=== PATIENT | female | born 1955 | race Caucasian/White ===

== ENCOUNTER → 2017-03-19 | Outpatient (CLI) | payer OTHER | LOC: FIMAGING 15:04 | PROVIDERS: ATTEND Internal Medicine | DX: Z12.31 Encounter for screening mammogram for malignant neoplasm of breast (principal) | CPT/HCPCS: G0202 ==

== ENCOUNTER → 2017-05-11 | Outpatient (CLI) | payer OTHER | LOC: FIMAGING 16:03 | PROVIDERS: ATTEND Internal Medicine | DX: R06.02 Shortness of breath (principal); G43.109 Migraine with aura, not intractable, without status migrainosus ==

== ENCOUNTER → 2017-05-27 | Outpatient (CLI) | payer OTHER ==
--- NOTE | 2017-05-28 01:08 | CPR ---
[f rep st] NONINVASIVE CARDIAC PROCEDURE REPORT DATE OF PROCEDURE: 05/26/2017 PROCEDURE: Exercise nuclear stress test. INDICATION: The patient is a 61-year-old female who presents complaining of exertional chest discomf ort which has been present all her life. She also has noted some chest pressure while under stressfu l situations. She denies any history of diabetes, hypertension, hyperlipidemia, or prior tobacco use . She does have a family history of coronary artery disease with her mother being diagnosed with cor onary artery disease at the age of 65. DESCRIPTION OF PROCEDURE: Consent was obtained. The patient was placed on continuous telemetry. He r resting EKG reveals normal sinus rhythm with diffuse T-wave flattening. Her heart rate 76, UT inte rval 128, QRS duration of 96, and a QTc of 443. The patient exercised on the treadmill for 6 minutes and 50 seconds. She started to develop ST changes with initial exertion. At peak exercise, she had to [address] depression in leads V4 through V6; aVR showed [address]-elevation. She also complain ed of 4/10 chest discomfort at peak exercise. Her ST changes improved but were still present 10 shanna shan into recovery. Late in recovery she also had ST depression in the inferior leads. Her blood pre ssure at rest was 118/82 and peaked at 172/76. Her blood pressure returned to baseline within 5 shanna shan of recovery. PLAN: Positive exercise treadmill test for ischemia. The patient also was symptomatic, complaining of 4/10 chest discomfort with exercise. I would have a low threshold to proceed with an angiogram. Also, of note, the patient had ST elevation in aVR which can be an indication of multivessel coronary artery disease. /[id number]/MODL
== END ==
LOC: FIMAGING 13:24
PROVIDERS: ATTEND Internal Medicine
DX: R07.89 Other chest pain (principal); R06.02 Shortness of breath; R94.31 Abnormal electrocardiogram [ECG] [EKG]
CPT/HCPCS: 78452; A9500

== ENCOUNTER 2017-06-16 06:05 | Day surgery (SDC) | payer OTHER ==
[2017-06-16] MEDS ORDERED: FAMOTIDINE 20 MG TAB PO ONE (06:11)
[2017-06-16] MEDS ORDERED: NS 1,000 ML IV ONE (06:11)
[2017-06-16] MEDS ORDERED: diphenhydrAMINE 25 MG CAP PO ONE ×2 (06:11→06:38)
[2017-06-16] MEDS ORDERED: ASPIRIN EC 325 MG TAB PO ONE (06:11)
[2017-06-16] MEDS ORDERED: DIAZEPAM 5 MG TAB PO ONE (06:11)
--- NOTE | 2017-06-16 06:30 | CPEKG ---
Heart Rate: 68 RR Interval: 882 P-R Interval: 132 QRSD Interval: 88 QT Interval: 412 QTC Interval: 439 P [place]: 48 QRS [place]: 30 T Wave [place]: 25 EKG Severity - NORMAL ECG - EKG Impression: SINUS RHYTHM Electronically Signed By: Anita Appiah 16-Jun-2017 18:44:15
[2017-06-16] MEDS ORDERED: DIAZEPAM 5 MG TAB ONE (06:38)
[2017-06-16] MEDS ORDERED: FAMOTIDINE 20 MG TAB ONE (06:38)
[2017-06-16] MEDS ORDERED: ASPIRIN EC 81 MG TAB PO ONE (06:39)
[2017-06-16 06:43] LABS: % IMMATURE GRANULYOCYTES 0.2 % (0.0-1.1); ABSOLUTE IMMATURE GRANULOCYTES 0.01 10^3/uL (0.00-0.10); ADD DIFF? NO; ADD MORPH? NO; ADD SCAN? NO; ATYPICAL LYMPHOCYTE FLAG 10 (0-99); FRAGMENT RBC FLAG 0 (0-99); HEMATOCRIT 42.4 % (38.0-47.0); HEMOGLOBIN 14.4 g/dL (12.6-16.3); LEFT SHIFT FLG 0 (0-99); LIPEMIA HEMOLYSIS FLAG 90 (0-99); MEAN CELL HEMOGLOBIN 30.2 pg (27.9-34.1); MEAN CELL VOLUME 88.9 fL (81.5-99.8); MEAN PLATELET VOLUME 8.9 fL (8.7-11.7); PLATELET CLUMPS FLAG 0 (0-99); PLATELET COUNT 223 10^3/uL (150-400); RED BLOOD CELL COUNT 4.77 10^6/uL (4.18-5.33); RED CELL DISTRIBUTION WIDTH 12.8 % (11.5-15.2)
[2017-06-16 06:54] LABS: INR 1.05 (0.83-1.16); PROTIME(PATIENT) 13.9 SEC (12.0-15.0)
[2017-06-16] MEDS ORDERED: LIDOCAINE 1% 300 MG/30 ML SDV ONE (07:19)
[2017-06-16] MEDS ORDERED: fentaNYL 100 MCG/2 ML INJ ONE ×2 (07:19→09:03)
[2017-06-16] MEDS ORDERED: MIDAZOLAM 2 MG/2 ML VIAL ONE ×2 (07:20)
[2017-06-16] MEDS ORDERED: IOPAMIDOL (ISOVUE-370) 150 ML BTL IV ONE (07:20)
[2017-06-16 07:44] LABS: ANION GAP 12 mEq/L (8-16); CALCIUM 9.4 mg/dL (8.5-10.4); CARBON DIOXIDE 22 mEq/l (22-31); CHLORIDE 111 mEq/L (97-110); CHOLESTEROL 209 mg/dL (140-220); CHOLESTEROL/HDL RATIO 3.94 RATIO (1.00-4.44); CREATININE 0.8 mg/dL (0.6-1.0); GLOMERULAR FILTRATION RATE > 60; GLUCOSE 91 mg/dL (70-100); HIGH DENSITY LIPOPROTEIN 53 mg/dL (40-85); LDL/HDL RATIO 2.43 RATIO (1.00-3.22); LOW DENSITY LIPOPROTEIN 129 mg/dL (80-100); NON-HIGH DENSITY LIPOPROTEIN 156 mg/dL (90-129); POTASSIUM 4.1 mEq/L (3.5-5.2); SODIUM 145 mEq/L (134-144); TRIGLYCERIDE 136 mg/dL (35-135); VERY LOW DENSITY LIPOPROTEINS 27 mg/dL (8-25)
--- NOTE | 2017-06-16 07:56 | PDHPUP ---
History & Physical Update H&P update statement: This history and physical update is based on an assessment of the patient which was completed after admission or registration (within 24 hours), but prior to the surgery/procedure. H&P update: H&P reviewed & patient examined, no change in patient's condition since H&P completed
--- NOTE | 2017-06-16 07:56 | PDPROPOC ---
Sedation Plan of Care Sedation Plan of Care: vital signs stable ASA Classification: ASA 1 Planned drugs: fentanyl, midazolam Mallampati Score: Class 2 Mallampati Reference Image: Patient passed 3-3-2 rule?: Yes
--- NOTE | 2017-06-16 08:28 | GHP ---
[f rep st] HISTORY AND PHYSICAL DATE OF ADMISSION: 06/16/2017 PRIMARY CARE DOCTOR: Myron Plasencia MD. CHIEF COMPLAINT: Chest pain. HISTORY OF PRESENT ILLNESS: The patient is a 61-year-old female with no known cardiovascular disease . She does have a family history of coronary disease, with her mother having bypass surgery in her 6 0s. For several years, she has had exertional chest tightness and also notes chest tightness with st ress. She does not particularly have shortness of breath. She has occasional palpitations. No sync ope. No symptoms of heart failure. Because of her symptoms of exertional chest pain, she underwent an exercise nuclear stress test at the hospital on May 27. This was notable for exertional ches t discomfort, reasonable exercise tolerance of 6 minutes and 50 seconds, and [address] depression in leads V4 through V6 as well as [address] elevation in lead AVR. Her nuclear images were negative f or ischemia. Ejection fraction normal. She had a similar clinical scenario in 2003 with an abnormal stress test and went on to have a coronary angiogram at that time. Per that report, there is no sig nificant coronary artery disease. REVIEW OF SYSTEMS: A full 10-point review of systems performed, notable for that which is outlined a sailaja. She also has had a chronic cough for about 4 years that is being evaluated by Dr. Plasencia and h as previously been evaluated by Pulmonology. She recently started Prilosec to see if this would help the cough. She is not sure it has helped that much, perhaps a little bit. Otherwise, a full 10-poi nt review of systems was performed and is negative. ALLERGIES: Latex causes a rash. Codeine causes nausea. PAST MEDICAL HISTORY: 1. Asthma and chronic cough. 2. Dyslipidemia. 3. History of hepatic cyst. PAST SURGICAL HISTORY: x2, and total hip replacement. SOCIAL HISTORY: The patient is and her is at the bedside. She is an grill attendant. She does not smoke cigarettes. She drinks alcohol in moderation. She has 2 grown children. FAMILY HISTORY: Notable for a mother with bypass surgery in her 60s. LABORATORY STUDIES: 1. EKG, reviewed by me: Normal sinus rhythm with nonspecific T-wave flattening in lead V3. 2. Exercise nuclear stress test 05/27 as detailed above. 3. Laboratory data: CBC normal. INR 1.05. LDL pending. Basic metabolic panel normal except for s lightly high chloride of 111. LDL cholesterol is 129. TSH normal. ASSESSMENT AND PLAN: A 61-year-old female with family history of coronary disease and borderline dys lipidemia. She presents with several years of exertional chest discomfort that may be worsening. He r exercise treadmill test is significant for abnormal EKG response. Even though she had a normal nuc lear stress test, her stress EKG is very concerning for obstructive coronary disease. Therefore, she will undergo elective coronary angiography. Risks, benefits, alternatives of procedure were explain ed to the patient. She is willing to proceed. We will plan for femoral artery approach. Consider s tatin therapy and daily aspirin depending on the results of her coronary angiogram. More recommendat ions to follow based on the results of angiogram. /[id number]/MODL
[2017-06-16] MEDS ORDERED: NITROGLYCERIN 0.4 MG BTL SL PRN (09:11)
[2017-06-16] MEDS ORDERED: ONDANSETRON 4 MG/2 ML VIAL IVP PRN (09:11)
[2017-06-16] MEDS ORDERED: ATROPINE SULFATE 1 MG/10 ML SYR IVP PRN (09:11)
--- NOTE | 2017-06-16 09:18 | PDDXCAT ---
Diagnostic Cath Note - . Date: 06/16/17 Trauma Program Manager: Bijal Indication: High-risk criteria on noninvasive testing (choose option below) High-risk criteria on non-invasive testing: high-risk treadmill score (score<=- 11) - Procedure Access: right groin Procedure: left heart catheterization, coronary angiography, left ventriculogram - Materials Left Heart Cath size: 6F Left Heart Cath materials: standard multipack (JL4, JR4, pigtail) - Findings-Left Heart Catheterization LM: normal LAD: normal, reaching the apex. one small diagonal without disease. 2 large septal perforators LCX: normal. one large branching OM without significant disease. codominant RCA: normal. codominant EDP: 117/7 (EDP 21) - Findings-Right Heart Catheterization AO: 117/69 Complications: none Estimated blood loss: <50ml Closure method: manual pressure Assessment: angiographically normal coronary arteries. Normal LVEF Plan: evaluate for noncardiac causes of chest pain.
[2017-06-16] MEDS ORDERED: KETOROLAC 30 MG/1 ML SDV ONE (09:55)
[2017-06-16] MEDS ORDERED: KETOROLAC 15 MG/1 ML SDV IVP ONE (10:00)
--- NOTE | 2017-06-16 13:14 | ECHO ---
[email or web address] [address] [address] Main: [phone] Fax: [email or web address] Echocardiogram Name: DOTTIE CORRALES MR#: [id number] Study Date: 06/16/2017 Study Time: 11:35 AM Date of : 1955 Age: 61 year(s) Height: 165.1 cm (65 in.) Weight: 65.77 kg (145 lb.) BSA: 1.73 m2 Gender: Female Examination: Echo Indication: Hx of chest pain/now VT Image Quality: Contrast: Requested by: Anita Appiah BP: 102 mmHg/70 mmHg Heart Rate: Rhythm: Indication: Hx of chest pain/now VT Procedure Staff Laborer Landscape: Shivani Newsome Physician: Juan Diego Dhaliwal Requesting Provider: Conclusions: Normal size left ventricle. Normal global systolic LV function. The ejection fraction is estimated to be 65-70 %. No regional wall motion abnormality. Normal size right ventricle. Normal RV function. Mildly dilated ascending aorta. No pericardial effusion. Measurements: Chambers Valvular Assessment AV/MV Valvular Assessment TV/PV Normal Normal Normal Name Value Range Name Value Range Name Value Range Ao Nisha (MM): 3.7 cm (2.2 cm-3.7 AV Vmax: 1.13 m/s (1 m/s-1.7 cm) m/s) IVSd (2D): 1.0 cm (0.6 cm-1.1 AV maxP mmHg ( - ) cm) MV E Vmax: 0.51 m/s ( - ) LVDd (2D): 4.8 cm (3.9 cm-5.3 MV A Vmax: 0.42 m/s ( - ) cm) MV E/A: 1.21 ( - ) LVDs (2D): 3.2 cm (2.1 cm-4 cm) LVPWd (2D): 0.8 cm ( - ) LVEF (MOD4): 68 % (>=55 %) EF Range: 65-70 % Continued Measurements: Chambers Valvular Assessment AV/MV Name Value Name Value Patient: DOTTIE CORRALES Study Date: 06/16/2017 Page 1 of 2 11:35 AM LADs: 3.3 cm MV E' Septal: 0.09 m/s LADs Lon.7 cm MV E/E' Septal: 5.70 LA Area: 17.5 cm2 MV E/E' Lateral: 5.90 TAPSE: 2.0 cm Findings: Left Ventricle: Normal size left ventricle. No LV hypertrophy. Normal global systolic LV function. The ejection fraction is estimated to be 65-70 %. No regional wall motion abnormality. Right Ventricle: Normal size right ventricle. Normal RV function. Left Atrium: The left atrium is normal in size. Right Atrium: The right atrium is normal in size. Mitral Valve: The mitral valve is normal in appearance and function. Trivial mitral valve regurgitation. Aortic Valve: The aortic valve is normal in appearance and function. The aortic valve is tri-leaflet. Trivial aortic valve regurgitation. Tricuspid Valve: The tricuspid valve is normal in appearance and function. Trivial tricuspid valve regurgitation. Pulmonic Valve: The pulmonic valve is normal in appearance and function. Aorta: Mildly dilated ascending aorta. Pericardium: No pericardial effusion. (No Signature Object) Patient: DOTTIE CORRALES Study Date: 06/16/2017 Page 2 of 2 11:35 AM [id number]
== END 2017-06-16 17:11 | disposition home or self-care (01) ==
LOC: FCATH 06:05
PROVIDERS: ATTEND Internal Medicine Cardiovascular Disease
PROC: 4A023N7 Measurement of Cardiac Sampling and Pressure, Left Heart, Percutaneous Approach (ICD-10-PCS; principal; 2017-06-16)
PROC: B2151ZZ Fluoroscopy of Left Heart using Low Osmolar Contrast (ICD-10-PCS; principal; 2017-06-16)
PROC: B2111ZZ Fluoroscopy of Multiple Coronary Arteries using Low Osmolar Contrast (ICD-10-PCS; principal; 2017-06-16)
DX: R07.9 Chest pain, unspecified (principal); J45.909 Unspecified asthma, uncomplicated; E78.5 Hyperlipidemia, unspecified
CPT/HCPCS: J1644; J1885; J2250; J3010; Q9967

== ENCOUNTER → 2017-08-12 | Outpatient (CLI) | payer OTHER | LOC: FIMAGING 11:20 | PROVIDERS: ATTEND Internal Medicine Cardiovascular Disease | DX: R00.0 Tachycardia, unspecified (principal); R10.30 Lower abdominal pain, unspecified; Z98.890 Other specified postprocedural states ==

== ENCOUNTER → 2017-12-17 | Outpatient (CLI) | payer OTHER | LOC: FIMAGING 09:46 | PROVIDERS: ATTEND Obstetrics & Gynecology | DX: N63.10 Unspecified lump in the right breast, unspecified quadrant (principal) ==

== ENCOUNTER → 2018-02-10 | Outpatient (CLI) | payer OTHER | DX: R05 Cough (principal); J45.909 Unspecified asthma, uncomplicated; J47.9 Bronchiectasis, uncomplicated ==

== ENCOUNTER → 2018-11-25 | Outpatient (CLI) | payer OTHER | LOC: FIMAGING 10:03 ==